=== PATIENT | male | born 1965 | race Caucasian/White ===

== ENCOUNTER 2020-11-27 06:54 | Outpatient (CLI) | payer OTHER, SELFPAY ==
--- NOTE | 2020-11-27 07:00 | US_ITS ---
WS: [id number] Complete ABDOMINAL ULTRASOUND HISTORY: ABD PAIN, EPIGASTRIC COMPARISON: 04/12/2012 Liver: 13.6 cm in length. Liver is normal size and echogenicity with no mass or intrahepatic dilatati on. Gallbladder: Normally distended with no gallstones, wall thickening or pericholecystic fluid. Gallbladder wall thickness: 0.2 cm. Pancreas: Poorly visualized. No mass identified. CBD: 0.3 cm. Right kidney: 11.4 cm x 6.2 cm x 4.3 cm. No mass, cortical thickening or hydronephrosis. Left kidney: 11.8 cm x 7.2 cm x 4.5 cm. No mass, cortical thickening or hydronephrosis. Spleen: Normal size and echogenicity. Abdominal aorta and IVC are within normal limits. No ascites. US/US abdomen complete* [id number] IMPRESSION: 1. Technically limited evaluation of the abdomen due to body habitus. 2. No abnormal gallbladder. 3. Poorly visualized pancreas. No abnormalities identified.
== END 2020-11-27 06:55 | disposition home or self-care (01) ==
PROVIDERS: PCP Family Medicine; Visit Provider Family Medicine
DX: R10.13 Epigastric pain (principal); R07.89 Other chest pain; M32.10 Systemic lupus erythematosus, organ or system involvement unspecified
CPT/HCPCS: 76700

== ENCOUNTER 2020-12-24 07:01 | Outpatient (CLI) | payer OTHER, SELFPAY ==
--- NOTE | 2020-12-24 07:15 | USCV_ITS ---
Lele Melgoza Age: 55 Gender: M : 1965 Exam Date: 12/24/2020 07:13 Ordering Phys: Amor Buck M.D ([email or web address]) Technologist: Tommy Lala [place] [facility] [place]: mr BP: 123 / HR: 64 Rhythm: Sinus Technical Quality: Fair MEASUREMENTS (Male / Female) Normal Values 2D ECHO LV Diastolic Diameter PLAX 5.0 cm 4.2 - 5.9 / 3.9 - 5.3 cm LV Systolic Diameter PLAX 2.6 cm IVS Diastolic Thickness 1.2 cm 0.6 - 1.0 / 0.6 - 0.9 cm IVS Systolic Thickness 1.8 cm LVPW Diastolic Thickness 1.1 cm 0.6 - 1.0 / 0.6 - 0.9 cm LVPW Systolic Thickness 1.9 cm LVOT Diameter 2.0 cm LV Ejection Fraction 2D Teich 78.7 % LV Ejection Fraction MOD 2C 46.1 % LV Ejection Fraction 2C AL 46.3 % LA Diameter 4.1 cm LA Width 3.9 cm LA Height 5.1 cm RA Width 4.2 cm RA Height 4.7 cm Aorta at Sinotubular Diameter 3.9 cm M-MODE LV Diastolic Diameter MM 6.8 cm 4.2 - 5.9 / 3.9 - 5.3 cm LV Systolic Diameter MM 3.9 cm LV Ejection Fraction MM Teich 72.4 % IVS Diastolic Thickness MM 1.1 cm 0.6 - 1.0 / 0.6 - 0.9 cm IVS Systolic Thickness MM 1.7 cm LVPW Diastolic Thickness MM 1.6 cm 0.6 - 1.0 / 0.6 - 0.9 cm LVPW Systolic Thickness MM 1.7 cm RV Diastolic Diameter MM 1.6 cm Aortic Annulus Diameter 4.4 cm LA Ao Ratio MM 0.9 MV E Point Septal Separation 1.2 cm DOPPLER AV Peak Velocity 88.0 cm/s LVOT Peak Velocity 78.0 cm/s AV Area Cont Eq vti 2.8 cm squared AV Area Cont Eq pk 2.9 cm squared MV Area PHT 5.0 cm squared Mitral E to A Ratio 1.1 MV E' Velocity 33.5 cm/s Mitral E to MV E' Ratio 4.7 Mitral E to LV E' Lateral Ratio 4.6 Mitral E to LV E' Septal Ratio 4.7 TR Peak Velocity 206.7 cm/s TR Peak Gradient 17.1 mmHg TV Peak E Velocity 80.0 cm/s Right Atrial Pressure 3.0 mmHg Pulmonary Artery Systolic Pressu 20.1 mmHg PV Peak Velocity 111.0 cm/s FINDINGS Left Ventricle Normal left ventricular size, systolic function and wall thickness, with no regional wall motion abnormalities. LVEF is 55-60%. Normal diastolic filling pattern. Right Ventricle The right ventricle is normal in size and function. Right Atrium The right atrium is normal in size. Left Atrium The left atrium is normal in size. Mitral Valve Thickened mitral valve without significant stenosis or prolapse. There is mild mitral regurgitation. Aortic Valve Structurally normal aortic valve without significant sclerosis or stenosis. There is no aortic regurgitation. Tricuspid Valve Structurally normal tricuspid valve without significant stenosis. Mild tricuspid regurgitation. RVSP is 20-25mmHg Pulmonic Valve Structurally normal pulmonic valve without significant stenosis. There is mild pulmonic regurgitation. Pericardium Normal pericardium without effusion. Aorta Mildly dilated ascending aorta CONCLUSIONS LV systolic function is normal with EF of 55-60% Diastolic function is normal There is mild mitral regurgitation Mild tricuspid and mild pulmonic regurgitation noted Mildly dilated ascending aorta Compared to prior echocardiogram from 08/29/2018, no significant changes are noted Amor Buck MD (Electronically Signed) Final Date: 26 December 2020 12:51 S
== END 2020-12-24 07:02 | disposition home or self-care (01) ==
LOC: RAD 07:02
PROVIDERS: PCP Family Medicine; Visit Provider Internal Medicine
DX: I08.1 Rheumatic disorders of both mitral and tricuspid valves (principal)
CPT/HCPCS: 93306

== ENCOUNTER → 2022-09-22 12:31 | Outpatient (BNVA) | payer OTHER, SELFPAY | PROVIDERS: PCP Family Medicine; Visit Provider Family Medicine | DX: E78.5 Hyperlipidemia, unspecified (principal); I10 Essential (primary) hypertension; R10.9 Unspecified abdominal pain; Z80.0 Family history of malignant neoplasm of digestive organs | CPT/HCPCS: 36415; 80053; 83690; 85025 ==

== ENCOUNTER 2023-03-20 08:00 | Outpatient (CLI) | payer OTHER, SELFPAY ==
--- NOTE | 2023-03-20 08:30 | USCV_ITS ---
Lele Melgoza Age: 58 Gender: M : 1965 Exam Date: 03/20/2023 08:17 Ordering Phys: Amor Buck M.D ([email or web address]) Technologist: CT Exam Location: [facility] – [place] Indication: mr BP: 120 / 70 HR: 58 Rhythm: Sinus Technical Quality: Adequate MEASUREMENTS (Male / Female) Normal Values 2D ECHO LV Diastolic Diameter PLAX 6.1 cm 4.2 - 5.9 / 3.9 - 5.3 cm LV Systolic Diameter PLAX 4.8 cm IVS Diastolic Thickness 1.1 cm 0.6 - 1.0 / 0.6 - 0.9 cm IVS Systolic Thickness 2.2 cm LVPW Diastolic Thickness 1.0 cm 0.6 - 1.0 / 0.6 - 0.9 cm LVPW Systolic Thickness 1.8 cm LVOT Diameter 2.2 cm LV Ejection Fraction 2D Teich 33.1 % LV Ejection Fraction MOD 2C 63.2 % LV Ejection Fraction 2C AL 61.4 % LA Diameter 4.0 cm Aorta at Sinotubular Diameter 3.2 cm IVC Diameter 1.7 cm M-MODE Aortic Annulus Diameter 3.8 cm LA Ao Ratio MM 1.2 MV E Point Septal Separation 0.7 cm DOPPLER AV Peak Velocity 87.0 cm/s LVOT Peak Velocity 95.0 cm/s AV Area Cont Eq vti 4.2 cm squared AV Area Cont Eq pk 4.1 cm squared MV Area PHT 5.2 cm squared Mitral E to A Ratio 1.2 MV E' Velocity 33.8 cm/s Mitral E to MV E' Ratio 6.3 Mitral E to LV E' Lateral Ratio 6.0 Mitral E to LV E' Septal Ratio 6.7 TR Peak Velocity 113.9 cm/s TR Peak Gradient 5.2 mmHg TR Mean Velocity 86.4 cm/s TR Mean Gradient 3.3 mmHg TR Velocity Time Integral 32.8 cm TV Peak E Velocity 88.0 cm/s Right Atrial Pressure 3.0 mmHg Pulmonary Artery Systolic Pressu 8.2 mmHg PV Peak Velocity 74.0 cm/s FINDINGS Left Ventricle Normal left ventricular size and systolic function, EF 70 %. No regional wall motion abnormalities. Right Ventricle The right ventricle is normal in size and function. Right Atrium Normal right atrial size. Left Atrium Interatrial septum bulging to the right Mitral Valve Thickened mitral valve. Mild-moderate eccentric mitral valve regurgitation. Mild prolapse of the posterior mitral leaflet Aortic Valve Trace to mild aortic valve regurgitation. Tricuspid Valve Trace to mild tricuspid valve regurgitation. Pulmonic Valve No gross abnormalities noted Pericardium Normal pericardium without effusion. Aorta Aortic root, at the level of the sinuses, was measuring 4.19 cm in systole and 3.75 cm in diastole IVC Normal inferior vena cava. CONCLUSIONS Normal left ventricular size and systolic function, EF 70 %. No regional wall motion abnormalities. Thickened mitral valve. Mild-moderate eccentric mitral valve regurgitation. Mild prolapse of the posterior mitral leaflet. Interatrial septum bulging to the right. Trace to mild aortic valve regurgitation. Trace to mild tricuspid valve regurgitation. Estimated pulmonary artery peak systolic pressure within normal limits Prominent aortic root measuring 4.1 cm in diameter during systole There is no pericardial effusion. There are no intracardiac masses. Compared to the study from 12/24/2020 there may not be a significant change Dr Kathrin Almonte MD [facility] (Electronically Signed) Final Date: 24 Mar 2023 07:33 S
== END 2023-03-20 08:01 | disposition home or self-care (01) ==
PROVIDERS: PCP Family Medicine; Visit Provider Internal Medicine
DX: I08.1 Rheumatic disorders of both mitral and tricuspid valves (principal)
CPT/HCPCS: 93306

== ENCOUNTER 2024-03-05 09:46 | Outpatient (CLI) | payer OTHER, SELFPAY ==
--- NOTE | 2024-03-05 10:00 | USCV_ITS ---
Lele Melgoza Age: 59 Gender: M : 1965 Exam Date: 03/05/2024 09:58 Ordering Phys: Amor Buck M.D ([email or web address]) Technologist: Exam Location: [facility] [place] Indication: sob BP: 126 / 74 HR: 76 Rhythm: Sinus Technical Quality: Adequate MEASUREMENTS (Male / Female) Normal Values 2D ECHO LV Diastolic Diameter PLAX 5.0 cm 4.2 - 5.9 / 3.9 - 5.3 cm IVS Diastolic Thickness 1.3 cm 0.6 - 1.0 / 0.6 - 0.9 cm IVS Systolic Thickness 1.8 cm LVPW Diastolic Thickness 1.3 cm 0.6 - 1.0 / 0.6 - 0.9 cm LVPW Systolic Thickness 1.7 cm LVOT Diameter 2.1 cm LV Ejection Fraction 2D Teich 59.0 % LV Ejection Fraction MOD 2C 71.7 % LV Ejection Fraction 2C AL 72.2 % LA Diameter 3.6 cm RA Systolic Volume 4C AL 49.8 ml RA Systolic Volume 4C MOD 49.0 ml LA Sys Volume AL 112.1 cm cubed LA Sys Volume Index AL 53.3 cm cubed/m squared Aorta at Sinotubular Diameter 2.8 cm IVC Diameter 1.7 cm M-MODE LA Ao Ratio MM 0.9 AV Cusp Separation MM 3.0 cm DOPPLER AV Peak Velocity 96.3 cm/s LVOT Peak Velocity 75.0 cm/s AV Area Cont Eq vti 2.9 cm squared AV Area Cont Eq pk 2.7 cm squared MV Peak Velocity 83.0 cm/s MV Area PHT 4.7 cm squared Mitral E to A Ratio 1.4 TR Peak Velocity 70.0 cm/s TR Peak Gradient 2.0 mmHg Right Atrial Pressure 3.0 mmHg Pulmonary Artery Systolic Pressu 5.0 mmHg PV Peak Velocity 72.0 cm/s FINDINGS Left Ventricle Left ventricle is normal size. LV systolic function is normal with EF 55 to 60%. No regional wall motion abnormalities are seen. Right Ventricle Normal size and function Right Atrium Normal in size Left Atrium Dilated Mitral Valve Structurally normal mitral valve. Mild mitral regurgitation. Aortic Valve Structurally normal aortic valve. No significant stenosis. Mild aortic regurgitation Tricuspid Valve Mild tricuspid regurgitation. Pulmonic Valve Trace pulmonic regurgitation. Pericardium Normal Aorta Ascending aorta is dilated with diameter of 3.76 cm. IVC Appears to be normal CONCLUSIONS LV systolic function is normal with EF of 55 to 60%. Left atrial dilation Mild mitral regurgitation Mild aortic regurgitation Trace pulmonic regurgitation Ascending aorta is dilated with diameter of 3.76 cm. Compared to prior echocardiogram from 2022, no significant changes are seen Amor Buck MD (Electronically Signed) Final Date: 10 Mar 2024 13:03 S
== END 2024-03-05 09:47 | disposition home or self-care (01) ==
LOC: RAD 09:52
PROVIDERS: PCP Family Medicine; Visit Provider Internal Medicine
DX: I08.0 Rheumatic disorders of both mitral and aortic valves (principal); R07.9 Chest pain, unspecified; I77.819 Aortic ectasia, unspecified site
CPT/HCPCS: 93306

== ENCOUNTER 2024-03-19 07:41 | Outpatient (CLI) | payer OTHER, SELFPAY ==
--- NOTE | 2024-03-19 08:00 | CT_ITS ---
WS: [id number] CTA THORACIC AORTA WITH HISTORY: To rule out thoracic aortic aneurysem TECHNIQUE: CT imaging of the thorax is performed with and without contrast. After noncontrast imaging is performed, CT angiogram is performed during injection of Omnipaque 350; 100 mL IV.. Sagittal and coronal reconstructions, sagittal and coronal MIP imaging is submitted. All CT scans at [facility] use at least one of these dose optimization techniques: automated exposure control; mA and/or k V adjustment per patient size (includes targeted exams where dose is matched to clinical indication); or iterative reconstruction. DLP: 685.43 mGy.cm COMPARISON: No similar studies. Echocardiogram report reviewed from 03/05/2024. Good contrast opacification of the thoracic aorta. No significant calcification or thrombus is identi fied. 3 aortic root leaflets are identified. Sinus of Valsalva measures 4.0 cm. Sinotubular junction 2.8 cm. Ascending aorta at the level of the RIGHT pulmonary artery is 3.5 cm. Descending aorta normal at 2.5 cm. No significant aneurysmal dilatation. Pulmonary artery size is normal. Mild enlargement o f the heart chambers. No pericardial or pleural effusions. There are a few scattered micronodules which are both calcified and noncalcified throughout each lung . Majority of these nodules are calcified. There is a very subtle area of groundglass attenuation RIG HT upper lobe. No pneumonia. Suprarenal abdominal aorta is normal. The visualized abdominal structures in the upper abdomen are ne gative. L1 10% compression fracture. CT/CT angio chest [id number] IMPRESSION: 1. No significant dilatation of the ascending aorta. The maximum diameter is 3 .5 cm. Not considered aneurysmal at this time. 2. There are no additional findings within the thoracic aorta to suggest signi ficant atherosclerotic disease. No calcification or intimal thrombus. No dissec tion. 3. Prior granulomatous disease. Tiny micronodules which are both calcified and noncalcified. 4. L1 10% compression fracture. Age-indeterminate fracture, new since 09/26/20 16.
[2024-03-19] MEDS: iohexol 300 mg/mL 100 mL Btl IV (08:14)
== END 2024-03-19 07:42 | disposition home or self-care (01) ==
LOC: RAD 07:41
PROVIDERS: PCP Family Medicine; Visit Provider Internal Medicine
DX: I71.20 Thoracic aortic aneurysm, without rupture, unspecified (principal)
CPT/HCPCS: 71275; Q9967

== ENCOUNTER → 2025-04-28 13:07 | Outpatient (BNVA) | payer OTHER, SELFPAY | PROVIDERS: PCP Family Medicine; Visit Provider Family Medicine | DX: M25.562 Pain in left knee (principal) | CPT/HCPCS: 73562 ==